=== PATIENT | male | born 1975 | race Asian ===

== ENCOUNTER → 2024-05-14 15:07 | Outpatient (CLI) | payer OTHER, SELFPAY ==
--- NOTE | 2024-05-14 15:11 | DI.MRI.S_ITS ---
PROCEDURE: MR SHOULDER RT WO CON INDICATIONS: pain in right shoulder TECHNIQUE: Noncontrast oblique coronal T2 fast spin echo with fat saturation, oblique sagittal T1 spin echo and T2 fast spin echo with fat saturation, axial T1 spin echo and T2 fast spin echo with fat saturation through the shoulder. COMPARISON: None. FINDINGS: Image quality: Excellent. Rotator cuff: In the supraspinatus, there is low-grade articular sided tear at the mid footprint. Additional low-grade, partial width articular sided tear at the footprint of the infraspinatus. The teres minor is unremarkable. Mild tendinosis of the subscapularis with low-grade interstitial tear. No muscle edema or fatty atrophy. Bones and bursae: Moderate degenerative changes of the acromioclavicular joint. Type 2 acromion. No os acromiale. Trace subacromial/subdeltoid bursitis. Mild subchondral cystic changes at the lesser tuberosity, reactive. No acute fracture or dislocation. No focal chondral defect of the glenohumeral articulation. Capsule and soft tissues: Superior labral tear, extending anteriorly to the anterior labrum. No paralabral cyst. The extra-articular, and the intra-articular biceps tendon are unremarkable. Trace glenohumeral effusion. No subcoracoid bursitis. No intra-articular body. IMPRESSION: 1. Moderate degenerative changes of the acromioclavicular joint. 2. Low-grade tear of the supraspinatus , infraspinatus, and the subscapularis. 3. Labral tear. No paralabral cyst. Dictated by: Elsy Lainez M.D. on 05/16/2024 at 13:03 Approved by: Elsy Lainez M.D. on 05/16/2024 at 13:09
== END ==
LOC: MRI 15:10
PROVIDERS: Referring Provider Student in an Organized Health Care Education/Training Program; Visit Provider Student in an Organized Health Care Education/Training Program
DX: M75.111 Incomplete rotator cuff tear or rupture of right shoulder, not specified as traumatic (principal); S43.491A Other sprain of right shoulder joint, initial encounter; M25.511 Pain in right shoulder
CPT/HCPCS: 73221

== ENCOUNTER → 2024-09-01 08:13 | Outpatient (CLI) | payer OTHER, SELFPAY ==
--- NOTE | 2024-09-01 08:14 | DI.US.S_ITS ---
PROCEDURE: US RENAL COMPLETE INDICATIONS: HTN TECHNIQUE: Real-time scanning was performed of the kidneys and bladder, with image documentation. COMPARISON: None. FINDINGS: Kidneys: Kidneys are normal in size. Right kidney measures 12.5 cm long; left kidney measures 11.6 cm long. Right renal cortical thickness is 2.2 cm; left renal cortical thickness is 1.9 cm. Renal cortical echotexture is normal. No suspicious solid mass lesions. No hydronephrosis. Bilateral renal calculi measuring up to 9 mm. Simple cyst at the superior pole of the left kidney measuring 1.4 cm. Bladder: Pre-void bladder volume is 373 mL. Post-void residual is 0 mL. Pre-void images demonstrate no intraluminal masses or stones. On pre-void images, no ureteral jets are noted with color Doppler interrogation. (Of note, ureteral jets may not be detectable in up to 25% of cases due to insufficient differences in specific gravity between ureteral and bladder urine). Miscellaneous: No free pelvic fluid. IMPRESSION: Bilateral nonobstructing renal calculi. No hydronephrosis. Approved by: Mejia Riley M.D. on 09/01/2024 at 13:54
== END ==
PROVIDERS: Referring Provider Student in an Organized Health Care Education/Training Program; Visit Provider Student in an Organized Health Care Education/Training Program
DX: I10 Essential (primary) hypertension (principal); N20.0 Calculus of kidney
CPT/HCPCS: 76770

== ENCOUNTER → 2024-10-19 11:17 | Outpatient (CLI) | payer OTHER, SELFPAY ==
--- NOTE | 2024-10-19 11:18 | DI.US.S_ITS ---
PROCEDURE: US RENAL DOPPLER INDICATIONS: Hypertension TECHNIQUE: Real time scanning was performed of both kidneys, followed by Color and pulsed Doppler interrogation of the renal vessels. COMPARISON: None. FINDINGS: Aortic peak systolic velocity: 155 cm/s. Right side: Abbasi-scale imaging: Kidney is 12.7 cm long. No hydronephrosis. No nephrolithiasis. Renal cortex is normal in echogenicity. No suspicious solid renal masses. Proximal renal artery peak systolic velocity: Nonvisualized Mid renal artery peak systolic velocity: Nonvisualized Distal renal artery peak systolic velocity: Nonvisualized Renal vein: Nonvisualized Peak renal/aortic ratio (RAR): Not applicable Left side: Abbasi-scale imaging: Kidney is 12.0 cm long. No hydronephrosis. No nephrolithiasis. Renal cortex is normal in echogenicity. No suspicious solid renal masses. Proximal renal artery peak systolic velocity: Nonvisualized Mid-renal artery peak systolic velocity: Nonvisualized Distal renal artery peak systolic velocity: Nonvisualized Renal vein: Nonvisualized Peak renal/aortic ratio (RAR): Not applicable IMPRESSION: Nondiagnostic exam. Neither the right or left renal artery was visualized Approved by: Ney Johnson M.D. on 10/19/2024 at 20:07
== END ==
LOC: US 11:17
PROVIDERS: Referring Provider Student in an Organized Health Care Education/Training Program; Visit Provider Student in an Organized Health Care Education/Training Program
DX: I10 Essential (primary) hypertension (principal)
CPT/HCPCS: 93975

== ENCOUNTER 2025-04-23 10:38 | Emergency (ER) | payer OTHER, SELFPAY ==
[2025-04-23 10:48] VITALS: BP 160/85; PULSE 97; RESP 16; TEMP 36.6; O2SAT 96; BMI 37.6
--- NOTE | 2025-04-23 12:21 | ED.SKABFB ---
HPI - Skin/Abscess/Foreign Bdy General Chief complaint: Skin/Abscess/Foreign Body Stated complaint: Wound on head Time Seen by Provider: 04/23/25 12:16 Source: patient Mode of arrival: Ambulatory History of Present Illness HPI narrative: Patient 49-year-old male history of diabetes presenting to day with right ear pain and rash on head. He reports that 2 days ago he noticed some pain behind his right ear and today woke up and had some red bumps on the top of his scalp. He denies any fever or chills. Related Data Previous Rx's ?Medication ?Instructions ?Recorded prednisone 20 mg tablet 40 mg (2 x 20 mg) PO DAILY #10 tabs 04/23/25 valacyclovir 1 gram tablet 1,000 mg PO Q8H #21 tabs 04/23/25 (Valtrex) Allergies Allergy/AdvReac Type Severity Reaction Status Date / Time No Known Drug Allergies Allergy Verified 04/23/25 10:48 Patient History Social History Smoking Status: Never smoker Smoking Status: Never smoker Exam Initial Vital Signs Initial Vital Signs: Vital Signs Temperature 97.9 F 04/23/25 10:48 Pulse Rate 97 H 04/23/25 10:48 Respiratory Rate 16 04/23/25 10:48 Blood Pressure 160/85 H 04/23/25 10:48 Pulse Oximetry 96 04/23/25 10:48 Oxygen Delivery Method Room Air 04/23/25 10:48 GENERAL: Well-appearing, well-nourished and in no acute distress. HENT: Tympanic membranes visualized no lesions no erythema CARDIOVASCULAR: peripheral pulses in tact, cap refill <2 sec RESPIRATORY: No respiratory distress, speaks in full sentences without difficulty EXTREMITIES: Normal range of motion, no clubbing or edema. Neurovascularly intact NEUROLOGICAL: Cranial nerves II through XII grossly intact. Normal gait and speech. SKIN: Vesicular lesions on head in the right side that do not cross midline. He Course Vital Signs Vital signs: Vital Signs - 8 hr 04/23/25 10:48 Temperature 97.9 F Pulse Rate 97 H Respiratory Rate 16 Blood Pressure 160/85 H Pulse Oximetry 96 Oxygen Delivery Method Room Air MDM - Skin/Abscess/Foreign Bdy MDM Narrative Medical decision making narrative: Patient 49-year-old male history of diabetes presents today with lesions on his head. He is tender behind his mastoid but no evidence of otitis media. I suspect he has herpes zoster/shingles. He is not in a significant amount of pain. He started noticing some pain and then rash presented today which is consistent with shingles. Discharge Plan Departure Patient Disposition: Home Clinical Impression: Shingles Instructions: DI for Shingles Activity Restrictions/Additional Instructions: *You have been diagnosed with shingles *What to do: At this time I suspect that you have shingles virus *Continue to take medications as directed Valacyclovir 1000 mg 3 times a day Prednisone 40 mg once a day for 5 days Tylenol Motrin as needed for pain *Follow up with your primary care provider in 2-3 days or call [phone] *Return to ER if you should have increasing redness fever pain [or] any new, worsening or concerning symptoms Prescriptions: New valacyclovir [Valtrex] 1 gram tablet 1,000 mg PO Q8H Qty: 21 0RF prednisone 20 mg tablet 40 mg PO DAILY Qty: 10 0RF Referrals: ProviderSanjiv [Primary Care Provider, Family Practice] Stand Alone Forms: Patient Portal/API
== END 2025-04-23 12:57 | disposition home or self-care (01) ==
PROVIDERS: Emergency Provider Emergency Medicine
DX: B02.9 Zoster without complications (principal)
CPT/HCPCS: 99281